=== PATIENT | female | born 1950 | race African-American/Black ===

== ENCOUNTER 2019-07-12 11:30 | Day surgery (SDC) | payer OTHER ==
[~2019-07-12] VITALS: Ht 144.8 cm; Wt 59.9 kg
[2019-07-12] MEDS ORDERED: LIDOCAINE 2% 100 MG/5 ML UJET TP ONE (13:30)
[2019-07-12] MEDS ORDERED: fentaNYL 0.05 MG/ML VIAL ONE (13:30)
== END 2019-07-12 14:24 | disposition home or self-care (01) ==
LOC: MDS 11:30 → MTU 11:40 → MDS 14:24
PROVIDERS: ATTEND Internal Medicine Gastroenterology
DX: Z12.11 Encounter for screening for malignant neoplasm of colon (principal); E66.3 Overweight
CPT/HCPCS: 45378; J3010